=== PATIENT | female | born 1950 | race Caucasian/White ===

== ENCOUNTER 2020-02-08 08:44 | Emergency (ER) | payer OTHER ==
[~2020-02-08] VITALS: Ht 142.2 cm; Wt 50.8 kg
[2020-02-08] MEDS ORDERED: TIVICAY50 MG (09:03)
[2020-02-08] MEDS ORDERED: VITAMIN D310 MCG (09:03)
[2020-02-08] MEDS ORDERED: DESCOVY 200-251 EACH (09:03)
[2020-02-08] MEDS ORDERED: GAS RELIEF125 M1 (09:04)
[2020-02-08] MEDS ORDERED: LANSOPRAZOLE30 MG (09:04)
[2020-02-08] MEDS ORDERED: FOSAMAX70 MG (09:04)
[2020-02-08] MEDS ORDERED: ZOVIRAX400 MG (09:05)
[2020-02-08] MEDS ORDERED: IBU600 MG PO (15:50)
== END 2020-02-08 16:29 | disposition home or self-care (01) ==
LOC: ER 08:44
DX: M79.602 Pain in left arm (principal); R07.89 Other chest pain

== ENCOUNTER 2020-10-01 12:31 | Emergency (ER) | payer OTHER ==
[~2020-10-01] VITALS: Ht 142.2 cm; Wt 50.8 kg
[~2020-10-01 12:31] MED LIST: DESCOVY 200-251 EACH; FOSAMAX70 MG; GAS RELIEF125 M1; IBU600 MG PO; LANSOPRAZOLE30 MG; TIVICAY50 MG; VITAMIN D310 MCG; ZOVIRAX400 MG
[2020-10-01] MEDS ORDERED: CRESTOR10 MG (13:45)
[2020-10-01] MEDS ORDERED: ACIDOPHILUS1 EAC3 (13:45)
== END 2020-10-01 21:52 | disposition home or self-care (01) ==
LOC: ER 12:31
DX: K52.89 Other specified noninfective gastroenteritis and colitis (principal); K80.20 Calculus of gallbladder without cholecystitis without obstruction; Z03.818 Encounter for observation for suspected exposure to other biological agents ruled out

== ENCOUNTER 2020-11-05 05:40 | Day surgery (SDC) | payer OTHER ==
[~2020-11-05 05:40] MED LIST changes: +ACIDOPHILUS1 EAC3; +CRESTOR10 MG
== END 2020-11-05 13:45 | disposition home or self-care (01) ==
LOC: AMB-ENDOS 05:40
PROVIDERS: ATTEND Surgery
DX: K62.89 Other specified diseases of anus and rectum (principal); Z20.822 Contact with and (suspected) exposure to COVID-19

== ENCOUNTER 2021-07-27 14:59 | Emergency (ER) | payer OTHER ==
[~2021-07-27] VITALS: Ht 149.9 cm; Wt 61.7 kg
[2021-07-27] MEDS ORDERED: PEPCID AC10 MG PO (15:50)
[2021-07-27] MEDS ORDERED: TIVICAY50 MG PO (15:51)
[2021-07-27] MEDS ORDERED: DESCOVY 200-251 EACH PO (15:51)
[2021-07-27] MEDS ORDERED: STOOL SOFTENER50 MG PO (15:51)
[2021-07-27] MEDS ORDERED: EZALLOR SPRINKLE5 MG PO (15:52)
[2021-07-27] MEDS ORDERED: PREVACID15 M1 PO (15:52)
== END 2021-07-27 23:38 | disposition home or self-care (01) ==
LOC: ER 14:59
DX: K62.5 Hemorrhage of anus and rectum (principal)

== ENCOUNTER 2021-08-26 13:37 | Emergency (ER) | payer OTHER ==
[~2021-08-26] VITALS: Ht 142.2 cm; Wt 49.9 kg
[~2021-08-26 13:37] MED LIST changes: +DESCOVY 200-251 EACH PO; +EZALLOR SPRINKLE5 MG PO; +PEPCID AC10 MG PO; +PREVACID15 M1 PO; +STOOL SOFTENER50 MG PO; +TIVICAY50 MG PO
[2021-08-26] MEDS ORDERED: VITAMIN C100 MG PO (13:50)
[2021-08-26] MEDS ORDERED: FOLIC ACID20 MG (13:51)
[2021-08-26] MEDS ORDERED: ZITHROMAX500 MG PO (15:33)
[2021-08-26] MEDS ORDERED: DICLOFENAC POTA50 MG PO (15:33)
== END 2021-08-26 16:20 | disposition home or self-care (01) ==
LOC: ER 13:37
DX: H66.91 Otitis media, unspecified, right ear (principal); H60.91 Unspecified otitis externa, right ear

== ENCOUNTER 2021-09-10 17:00 | Emergency (ER) | payer OTHER ==
[~2021-09-10] VITALS: Ht 142.2 cm; Wt 49.0 kg
[~2021-09-10 17:00] MED LIST changes: +DICLOFENAC POTA50 MG PO; +FOLIC ACID20 MG; +VITAMIN C100 MG PO; +ZITHROMAX500 MG PO
[2021-09-10] MEDS ORDERED: ZITHROMAX TRI-500 MG PO (18:08)
== END 2021-09-10 18:18 | disposition home or self-care (01) ==
LOC: ER 17:00
DX: R07.0 Pain in throat (principal); B20 Human immunodeficiency virus [HIV] disease; Z88.8 Allergy status to other drugs, medicaments and biological substances

== ENCOUNTER 2022-01-09 17:59 | Emergency (ER) | payer OTHER ==
[~2022-01-09] VITALS: Ht 142.2 cm; Wt 49.0 kg
[~2022-01-09 17:59] MED LIST changes: +ZITHROMAX TRI-500 MG PO
== END 2022-01-09 20:26 | disposition home or self-care (01) ==
LOC: ER 17:59
DX: S00.93XA Contusion of unspecified part of head, initial encounter (principal); W07.XXXA Fall from chair, initial encounter; Y93.89 Activity, other specified; Y92.89 Other specified places as the place of occurrence of the external cause; Y99.9 Unspecified external cause status; Z88.8 Allergy status to other drugs, medicaments and biological substances; E11.9 Type 2 diabetes mellitus without complications; Z79.84 Long term (current) use of oral hypoglycemic drugs

== ENCOUNTER 2022-01-14 13:52 | Emergency (ER) | payer OTHER ==
[~2022-01-14] VITALS: Ht 142.2 cm; Wt 49.9 kg
[2022-01-14] MEDS ORDERED: TYLENOL ARTHRI650 MG PO (16:31)
[2022-01-14] MEDS ORDERED: ORPHENADRINE C100 MG PO (16:32)
== END 2022-01-14 16:46 | disposition home or self-care (01) ==
LOC: ER 13:52
DX: M54.50 Low back pain, unspecified (principal); M54.2 Cervicalgia; E11.9 Type 2 diabetes mellitus without complications; Z88.8 Allergy status to other drugs, medicaments and biological substances

== ENCOUNTER 2022-01-22 16:36 | Emergency (ER) | payer OTHER ==
[~2022-01-22] VITALS: Ht 142.2 cm; Wt 48.1 kg
[~2022-01-22 16:36] MED LIST changes: +ORPHENADRINE C100 MG PO; +TYLENOL ARTHRI650 MG PO
== END 2022-01-22 19:06 | disposition home or self-care (01) ==
LOC: ER 16:36
DX: M54.89 Other dorsalgia (principal); Z88.4 Allergy status to anesthetic agent; E11.9 Type 2 diabetes mellitus without complications; Z21 Asymptomatic human immunodeficiency virus [HIV] infection status

== ENCOUNTER 2023-04-08 12:29 | Emergency (ER) | payer OTHER ==
[~2023-04-08] VITALS: Ht 132.1 cm; Wt 51.3 kg
[~2023-04-08 12:29] MED LIST changes: +CHILDREN'S ASPI81 MG; +ESTRADIOL10 MCG; +FENOFIBRATE160 MG; +GLUMETZA500 MG; +ZANAFLEX2 MG
[2023-04-08] MEDS ORDERED: GABAPENTIN300 M2 PO (12:44)
[2023-04-08] MEDS ORDERED: RALOXIFENE HCL60 MG PO (12:45)
[2023-04-09] MEDS ORDERED: PEPCID40 MG PO (08:01)
[2023-04-09] MEDS ORDERED: ONDANSETRON ODT4 MG PO (08:01)
[2023-04-09] MEDS ORDERED: INTESTINEX680 M2 PO (08:01)
[2023-04-09] MEDS ORDERED: LEVSIN/SL0.125 MG SL (08:01)
== END 2023-04-08 13:23 | disposition home or self-care (01) ==
LOC: ER 12:29
DX: K03.81 Cracked tooth (principal); Z91.041 Radiographic dye allergy status; Z88.0 Allergy status to penicillin; Z88.2 Allergy status to sulfonamides; Z88.6 Allergy status to analgesic agent
CPT/HCPCS: 96372; 99284; J1885; J3490

== ENCOUNTER 2023-04-09 03:02 | Emergency (ER) | payer OTHER ==
[~2023-04-09] VITALS: Ht 142.2 cm; Wt 51.3 kg
[~2023-04-09 03:02] MED LIST changes: +GABAPENTIN300 M2 PO; +RALOXIFENE HCL60 MG PO
[2023-04-09] MEDS ORDERED: PEPCID40 MG PO (08:01)
[2023-04-09] MEDS ORDERED: LEVSIN/SL0.125 MG SL (08:01)
[2023-04-09] MEDS ORDERED: INTESTINEX680 M2 PO (08:01)
[2023-04-09] MEDS ORDERED: ONDANSETRON ODT4 MG PO (08:01)
== END 2023-04-09 08:09 ==
LOC: ER 03:02
PROVIDERS: General Practice
DX: K52.89 Other specified noninfective gastroenteritis and colitis (principal)
CPT/HCPCS: 36415; 96365; 96366; 99283; J3490; J7030

== ENCOUNTER 2023-04-27 09:58 | Emergency (ER) | payer OTHER ==
[~2023-04-27] VITALS: Ht 142.2 cm; Wt 49.4 kg
[~2023-04-27 09:58] MED LIST changes: +INTESTINEX680 M2 PO; +LEVSIN/SL0.125 MG SL; +ONDANSETRON ODT4 MG PO; +PEPCID40 MG PO
[2023-04-27 14:28] LABS: HEMATOCRIT 42.8 % (36.0-45.00); HEMOGLOBIN 14.7 g/dL (12.0-15.00); MEAN CELL VOLUME 97.8 fL (80.00-100.00); MEAN CORPUSCULAR HEMOGLOBIN 33.5 pg (27.00-32.0); MEAN CORPUSCULAR HGB CONC 34.3 g/dl (32.0-36.0); PLATELET COUNT 246 K/uL (150-450); RED BLOOD COUNT 4.38 M/uL (4.00-6.00); RED CELL DISTRIBUTION WIDTH 13.2 % (11.5-14.5)
[2023-04-27] MEDS ORDERED: MOLNUPIRAVIR (200 MG PO (16:28)
== END 2023-04-27 16:49 | disposition home or self-care (01) ==
LOC: ER 09:59
PROVIDERS: General Practice
DX: U07.1 COVID-19 (principal); E11.9 Type 2 diabetes mellitus without complications; Z79.84 Long term (current) use of oral hypoglycemic drugs; I11.9 Hypertensive heart disease without heart failure; Z91.041 Radiographic dye allergy status; Z88.2 Allergy status to sulfonamides; Z88.0 Allergy status to penicillin
CPT/HCPCS: 36415; 96372; 99284; J1100

== ENCOUNTER 2024-07-27 08:16 | Emergency (ER) | payer OTHER ==
[~2024-07-27] VITALS: Ht 142.2 cm; Wt 50.3 kg
[~2024-07-27 08:16] MED LIST changes: +MOLNUPIRAVIR (200 MG PO
[2024-07-27] MEDS ORDERED: FENOFIBRATE150 MG (08:20)
[2024-07-27] MEDS ORDERED: 0.9 % SODIUM CHLORIDE 1,000 ML IV SCH (08:30)
[2024-07-27 09:00] LABS: HEMATOCRIT 45.7 % (36.0-45.00); HEMOGLOBIN 15.7 g/dL (12.0-15.00); MEAN CORPUSCULAR HEMOGLOBIN 33.3 pg (27.00-32.0); MEAN CORPUSCULAR HGB CONC 34.4 g/dl (32.0-36.0); PLATELET COUNT 302 K/uL (150-450); RED BLOOD COUNT 4.71 M/uL (4.00-6.00); RED CELL DISTRIBUTION WIDTH 13.8 % (11.5-14.5)
[2024-07-27] MEDS ORDERED: FAMOTIDINE/PF 20 MG in 0.9 % SODIUM CHLORIDE 8 ML IV PUSH STA (09:01)
[2024-07-27 09:34] LABS: URINE APPEARANCE Clear; URINE BILIRRUBIN Negative (NEGATIVE); URINE BLOOD Negative; URINE COLOR Dark Yellow; URINE GLUCOSE Negative (NEGATIVE); URINE KETONE Trace (NEGATIVE); URINE LEUKOCYTE Negative; URINE NITRATE Negative; URINE PROTEIN Trace (NEGATIVE); URINE UROBILINOGEN 0.2 E.U./dl
[2024-07-27 09:37] LABS: URINE BACTERIA 7.3 uL (0.0-1933); URINE EPITHELIAL CELLS 2.5 uL (0.0-38.8); URINE RBC 14.5 uL (0.0-20.8); URINE WBC 3.1 uL (0.0-23.2)
[2024-07-27 09:48] LABS: CALCIUM 10.3 mg/dL (8.5-10.1); CREATININE SERUM 0.88 mg/dL (0.55-1.02); GFR 62.64; POTASSIUM 4.38 mEq/L (3.5-5.1)
[2024-07-27] MEDS ORDERED: METRONIDAZOLE/SODIUM CHLORIDE 500 MG/100 ML PIGGYBACK IV ONE (13:30)
[2024-07-27] MEDS ORDERED: CIPROFLOXACIN IN 5 % DEXTROSE 400 MG/200 ML PIGGYBAG IV ONE (13:30)
== END 2024-07-27 14:12 | disposition home or self-care (01) ==
LOC: ER 08:19
PROVIDERS: Emergency Medicine
DX: K52.89 Other specified noninfective gastroenteritis and colitis (principal); R11.10 Vomiting, unspecified; I10 Essential (primary) hypertension; E11.9 Type 2 diabetes mellitus without complications; Z79.84 Long term (current) use of oral hypoglycemic drugs; Z88.4 Allergy status to anesthetic agent
CPT/HCPCS: 36415; 96365; 96366; 99282; J0744; J3490 ×2; J7030

== ENCOUNTER 2024-11-16 07:36 | Outpatient (CLI) | payer OTHER ==
[~2024-11-16 07:36] MED LIST changes: +FENOFIBRATE150 MG
== END 2024-11-16 07:45 | disposition home or self-care (01) ==
LOC: RAD 07:36
PROVIDERS: ATTEND Internal Medicine
DX: R10.9 Unspecified abdominal pain (principal)
CPT/HCPCS: 72148

== ENCOUNTER 2025-01-04 12:11 | Outpatient (CLI) | payer OTHER | END 2025-01-04 12:15 | disposition home or self-care (01) | LOC: RAD 12:11 | PROVIDERS: ATTEND Physical Medicine & Rehabilitation | DX: M54.59 Other low back pain (principal); M25.552 Pain in left hip ==

== ENCOUNTER 2025-03-27 10:51 | Outpatient (CLI) | payer OTHER ==
[2025-03-27 12:13] LABS: COVID-19 AG NEGATIVE (NEGATIVE)
[2025-03-27 13:43] LABS: MYCOPLASMA PNEUMONIAE IGM NON REACTIVE (NO REACTIVE)
== END 2025-03-27 10:52 | disposition home or self-care (01) ==
LOC: LAB 10:51
PROVIDERS: ATTEND Internal Medicine
DX: J11.1 Influenza due to unidentified influenza virus with other respiratory manifestations (principal); J15.7 Pneumonia due to Mycoplasma pneumoniae; R50.9 Fever, unspecified; Z20.822 Contact with and (suspected) exposure to COVID-19

== ENCOUNTER 2025-04-17 12:08 | Outpatient (CLI) | payer OTHER | END 2025-04-17 12:15 | disposition home or self-care (01) | LOC: MRI 12:08 | PROVIDERS: ATTEND Internal Medicine | DX: K62.89 Other specified diseases of anus and rectum (principal); K62.5 Hemorrhage of anus and rectum; K60.50 Anorectal fistula, unspecified | CPT/HCPCS: 72195 ==

== ENCOUNTER 2025-07-30 08:51 | Emergency (ER) | payer OTHER ==
[~2025-07-30] VITALS: Ht 142.2 cm; Wt 47.2 kg
[2025-07-30] MEDS ORDERED: BIKTARVY 50-201 EACH PO (09:23)
[2025-07-30] MEDS ORDERED: PREDNISOLONE ACE5 M1 OP (09:24)
[2025-07-30] MEDS ORDERED: COLACE100 MG PO (09:24)
[2025-07-30] MEDS ORDERED: PEPCID AC20 MG PO (09:24)
[2025-07-30] MEDS ORDERED: NEOMYCIN/POLYMYXIN B/HYDROCORT 20 DR/ML BOTTLE OT ONE ×2 (09:45→11:02)
[2025-07-30] MEDS ORDERED: TRAMADOL HCL 50 MG TABLET PO ONE (09:45)
[2025-07-30] MEDS ORDERED: NORFLEX100MG PO (10:16)
[2025-07-30 11:15] VITALS: BP 150/74; O2SAT 98
== END 2025-07-30 11:17 | disposition home or self-care (01) ==
LOC: ER 08:52
DX: M54.50 Low back pain, unspecified (principal); H92.01 Otalgia, right ear; Z88.0 Allergy status to penicillin; Z88.2 Allergy status to sulfonamides; Z91.041 Radiographic dye allergy status; Z88.8 Allergy status to other drugs, medicaments and biological substances; B20 Human immunodeficiency virus [HIV] disease; E11.9 Type 2 diabetes mellitus without complications